=== PATIENT | female | born 1950 | race Caucasian/White ===

== ENCOUNTER 2016-10-08 07:27 | Day surgery (SDC) | payer OTHER ==
[2016-10-08] VITALS (7 sets, daily range): BP systolic 112–130; BP diastolic 60–68; PULSE 62–107; RESP 18–20; TEMP 97.6–97.9; O2SAT 91–99
[~2016-10-08] VITALS: Ht 170.2 cm; Wt 50.0 kg
[~2016-10-08 07:27] MED LIST: GABA400C5 PO; LIPI20TA PO; LISI-515 PO; MEGE40SU PO; OXYC1TAB36 PO; ZOLO50TA PO
[2016-10-08] MEDS ORDERED: LIDOCAINE 1%/EPINEPHrine 1:100,000 SOLN 20 ML VIAL ONE (07:42)
[2016-10-08] MEDS ORDERED: MULT1TAB84 PO (07:49)
[2016-10-08] MEDS ORDERED: CALC1TAB12 PO (07:49)
[2016-10-08] MEDS ORDERED: DURA12DI T-DERMAL (07:49)
[2016-10-08] MEDS ORDERED: ASCO500T PO (07:49)
[2016-10-08] MEDS ORDERED: SODIUM CHLOR 0.9% 1000 ML IV SCH (08:00)
[2016-10-08] MEDS ORDERED: fentaNYL CITRATE 250 MCG/5 ML AMP ONE (09:31)
[2016-10-08] MEDS ORDERED: MIDAZOLAM HCL 5 MG/5 ML VIAL ONE (09:32)
--- NOTE | 2016-10-08 12:49 | RADRPT ---
EXAM DATE/TIME: 10/08/2016 09:38 [place] COMPARISON: No previous studies available for comparison. INDICATIONS : Pelvic mass. SEDATION TIME: 30 minutes BIOPSY SITE: Pelvic MEDICATION(S): 1.) 1 mg midazolam (Versed) IV 2.) 50 mcg fentanyl (Sublimaze) IV DEVICE(S): 1.) 18 gauge BioPince needle MEDICAL HISTORY : None. SURGICAL HISTORY : None. ENCOUNTER: Initial ACUITY: 1 day PAIN SCORE: 0/10 LOCATION: pelvis A total of two core specimen(s) were obtained and sent to the laboratory for pathologic evaluation. PROCEDURE: 1. CT guided pelvic biopsy. 2. Conscious sedation with continuous EKG and oximetry monitoring. 3. EKG and oximetry remained stable throughout the procedure. Prior to the procedure informed consent was obtained. Any appropriate prior imaging studies were rev iewed. The site was prepped in a sterile fashion. Full sterile technique was used, including cap, mask, loki rile gloves and gown and a large sterile sheet. Hand hygiene and 2% chlorhexidine and/or betadine/al cohol prep was utilized per protocol for cutaneous antisepsis. The skin and subcutaneous tissues wer e infiltrated with local anesthetic solution. With CT guidance the previously identified target was localized. Biopsy was performed using the presc ribed needle as above. Adequate hemostasis was obtained with compression at the puncture site. Follow-up CT scan reveals no hemorrhage. The patient tolerated the procedure well and there were no complications. The patient was returned to the Radiology Outpatient Unit in stable condition. CONCLUSION: Uncomplicated CT guided biopsy. Clarence Arboleda MD FACR on October 08, 2016 at 12:47 Board Certified Radiologist. This report was verified electronically.
== END 2016-10-08 13:55 | disposition home or self-care (01) ==
LOC: HRAD 07:27 → HRIP 07:31 → EDSTATUS 08:00 → HRAD 13:55
PROVIDERS: ATTEND Radiology Radiation Oncology
DX: C53.8 Malignant neoplasm of overlapping sites of cervix uteri (principal); C76.3 Malignant neoplasm of pelvis; I10 Essential (primary) hypertension; E78.5 Hyperlipidemia, unspecified
CPT/HCPCS: 49180; 77012; 88307; 88333; 99152; J2250; J3010; J7030; 88305